=== PATIENT | female | born 1980 | race Caucasian/White ===

== ENCOUNTER 2016-03-23 18:08 | Emergency (ER) | payer OTHER ==
[2016-03-23 18:33] VITALS: BP 126/81; PULSE 95; RESP 16; TEMP 98.8; O2SAT 97
--- NOTE | 2016-03-23 18:39 | UCPHY ---
H & P Patient Type: New HPI/ROS: CHIEF COMPLAINT: Sore throat, rhinorrhea, cough. HISTORY OF PRESENT ILLNESS: The patient is a 35-year-old female who presents with 9 days of sore throat, productive cough, congestion, and rhinorrhea. She denies shortness of breath, fever, nausea, vomiting, or diarrhea. She has been taking Tylenol for the fever. REVIEW OF SYSTEMS: Aside from elements discussed in the HPI, a comprehensive 10-point review of systems was reviewed and is negative. PAST MEDICAL HISTORY: Appendectomy. SOCIAL HISTORY: Nonsmoker. VITAL SIGNS: see nurse's notes. GENERAL: Well-developed, well-nourished, in no acute distress. HEENT: Atraumatic Eyes: PERRL, EOMI, no conjunctival injection. Ears: TM clear bilaterally. Nose: No discharge. Mouth: moist mucous membranes. Pharynx: Erythematous, no exudates, no swelling, no abscess. Uvula is midline. NECK: Supple, no adenopathy, no meningismus, no tenderness. Negative Kernig's and Brudzinski's. LUNGS: Clear to auscultation bilaterally, no wheezes, rhonchi or rales. CARDIAC: Regular rate and rhythm, no rubs, murmurs or gallops. ABDOMEN: Soft, nontender, bowel sounds normal. BACK: No CVA tenderness. EXTREMITIES: Normal, no edema, FROM. NEURO: Alert and oriented, grossly nonfocal. SKIN: Warm and dry, no rash. PSYCHIATRIC: Normal mentation, no agitation. Portions of this note were transcribed by a medical billing service. I personally performed a history, physical exam, medical decision making, and confirmed accuracy of information the transcribed note. Smoking Status: Never smoked Constitutional: Initial Vital Signs Temperature (C) 37.1 C 03/23/16 18:25 Heart Rate 95 03/23/16 18:25 Respiratory Rate 16 03/23/16 18:25 Blood Pressure 126/81 H 03/23/16 18:25 O2 Sat (%) 97 03/23/16 18:25 O2 Delivery Mode Room Air Allergies/Adverse Reactions: aspirin Allergy (Severe, Verified 03/23/16 18:33) chest tightness, itching, hives ketorolac Allergy (Severe, Verified 03/23/16 18:33) chest tightness, itching, hives NSAIDS (Non-Steroidal Anti-Inflamma Allergy (Severe, Verified 03/23/16 18:33) Home Medications: Medication Instructions Recorded Cholecalciferol Vit D3 [Vitamin D3 1,000 units PO DAILY 07/24/14 (*)] Norgestimate-Ethinyl Estradiol 1 each PO DAILY 07/24/14 [Ortho Tri-Cyclen 28 Tablet] AZITHROMYCIN [Z-PACK] 250 - 500 mg PO DAILY #6 tab 03/23/16 Medical Decision Making ED Course/Re-evaluation: A strep swab was obtained and sent to the lab. - Data Points Laboratory Results: 03/23/16 03/23/16 Unknown 18:40 Group A Strep Screen NEGATIVE (NEGATIVE) Group A Strep DNA Pending Departure - Departure Disposition: Home, Routine, Self-Care Clinical Impression: Viral syndrome Condition: Good Instructions: Viral Syndrome (ED) Additional Instructions: Mainstay of therapy will be to drink plenty of fluids, control your symptoms with [id number] medications, and get plenty of rest. If you have a fever, use Tylenol or ibuprofen. You may take both at the same time if needed. Adult Pain & Fever Control: We recommend Acetaminophen (Tylenol) and Ibuprofen (Motrin, Advil) for pain and fever control. Your dose is: Acetaminophen 650-1000mg every 4 to 6 hours For your sore throat, take Tylenol. Throat lozenges, throat sprays, or salt water gargles may also be helpful. Take antibiotic as directed. Azithromycin 500 mg on day 1, then 250 mg on days 2 through 5. Return to the urgent care or seek care urgently if you're symptoms are worsening despite the above treatment, if you develop shortness of breath, if you're unable to drink fluids secondary to throat pain or other issues, to have vomiting, diarrhea, or other concerns. Referrals: NONE *PRIMARY CARE P,. [Primary Care Provider] - As per Instructions Prescriptions: AZITHROMYCIN [Z-PACK] 250 - 500 mg PO DAILY #6 tab - PQRS PQRS Measurement: Not applicable. Report Scribed for: Susan Mora Report Scribed by: Anshul Hicks Date of Report: 03/23/16 Time of Report: 18:43
== END 2016-03-23 19:10 | disposition home or self-care (01) ==
LOC: CED 18:08
DX: B34.9 Viral infection, unspecified (principal)
CPT/HCPCS: 87880-PO; G0463-PO